=== PATIENT | male | born 1965 ===

== ENCOUNTER 2023-11-15 07:55 | Day surgery (SDC) | payer OTHER ==
[~2023-11-15] VITALS: Ht 160 cm; Wt 79.5 kg
[2023-11-15 16:15] VITALS: BP 146/79
== END 2023-11-15 16:35 | disposition home or self-care (01) ==
LOC: ORSCMMR 07:55
PROC: 0JB50ZX Excision of Left Neck Subcutaneous Tissue and Fascia, Open Approach, Diagnostic (ICD-10-PCS; principal; 2023-11-15)
DX: D17.0 Benign lipomatous neoplasm of skin and subcutaneous tissue of head, face and neck (principal); I10 Essential (primary) hypertension; K21.9 Gastro-esophageal reflux disease without esophagitis; E78.5 Hyperlipidemia, unspecified; N40.0 Benign prostatic hyperplasia without lower urinary tract symptoms; Z79.899 Other long term (current) drug therapy

== ENCOUNTER 2024-11-08 08:22 | Day surgery (SDC) | payer OTHER ==
[~2024-11-08] VITALS: Ht 165.1 cm; Wt 71.5 kg
[~2024-11-08 08:22] MED LIST: BENZ100A PO; Bupivacaine 0.5% W/EPI 1:200000 SDV 30 ML Vial ONE; CLEARLAX PO; CeFAZolin Sodium 2,000 MG VIAL ONE; Cyclobenzaprine5 MG PO; DICL75ER PO; Dexamethasone Sod Phos 10 MG/ML 1ML VIAL ONE; FINA5 PO; FentaNYL Citrate 50 MCG/ML 2 ML Injection ONE; Flonase 0.05% N16 GM; GABA100 PO; HYDHCL25 PO; LOVA40 PO; Lactated Ringer's 1,000 ML IV ONE; MECL25 PO; NAPR220 PO; ONDA4ODT MM; Ondansetron HCl 2 MG / ML 2ML Vial ONE; Pravachol40 MG PO; Prinivil10 MG PO; TADA10TA PO; TAMS.4ER PO; ZESTORETIC 20-121 EA; albuterol sulfate HF INH; propofoL 20 ML IV ONE
[2024-11-08] MEDS ORDERED: PRAV20 PO (08:34)
[2024-11-08] MEDS ORDERED: Lactated Ringer's 1,000 ML IV ONE (08:40)
--- NOTE | 2024-11-08 09:40 | NUR ---
11/08/24 0940 Destiny Downing PT ASLEEP UP ARRIVAL TO PACU. REPORT RECEIVED. VSS, PT ON ROOM AIR. CAP REFILL IN RIGHT TOES <3 SECONDS, TOES PINK, WARM AND DRY. IV PATENT. PT 93% ON ROOM AIR
--- NOTE | 2024-11-08 09:57 | NUR ---
11/08/24 0957 Destiny Downing PT AAOX4, EMOTIONAL, BUT CALM AND COOPERATIVE. PATIENT DENIES PAIN AND NAUSEA AT THIS TIME.
[2024-11-08 10:33] VITALS: BP 134/67
== END 2024-11-08 10:53 | disposition home or self-care (01) ==
LOC: ORSCSDS 08:22
PROVIDERS: Podiatrist Foot & Ankle Surgery
PROC: 0QSN04Z Reposition Right Metatarsal with Internal Fixation Device, Open Approach (ICD-10-PCS; principal; 2024-11-08 09:15)
DX: M77.41 Metatarsalgia, right foot (principal); I10 Essential (primary) hypertension; K21.9 Gastro-esophageal reflux disease without esophagitis; Z87.891 Personal history of nicotine dependence; E78.5 Hyperlipidemia, unspecified; Z79.899 Other long term (current) drug therapy
CPT/HCPCS: C1713; C1769; J0690; J1100; J2405; J2704; J3010; J7120